=== PATIENT | male | born 1960 | race Two or more races ===

== ENCOUNTER → 2018-01-02 | Outpatient (CLI) | payer BC ==
--- NOTE | 2018-01-02 12:37 | Diagnostic Imaging Report ---
EXAMINATION: MRI of the thoracic spine without contrast HISTORY: Mid back pain for last 3 years, radiculopathy COMPARISON: None. TECHNIQUE: Sagittal T1 without contrast, T2, and STIR; axial T2. Coronal T2. FINDINGS: Curvature: Normal kyphosis. Vertebrae: -Subtle diffuse low T1 bone marrow signal intensity within the T8, T9 and T10 vertebral bodies and partially posterior elements mainly on the left left pedicle of T9 and T10, no definite cortical disruption, periosteal reaction or paraspinal soft tissue abnormality. This finding is nonspecific and may represent an artifact or be related to subacute trauma, bone marrow replacement, myeloproliferative disorder and red marrow reconversion in the setting of anemia, among other etiologies. -No evidence of recent displaced fractures, infection, or expansile tumors. Discs: Normal Spinal canal: No mass or abnormal blood vessels. Spinal cord: Normal size and signal intensity. Foramina: Unremarkable. Paraspinal soft tissues: Unremarkable. Proximal ribs: No abnormal signal intensity. IMPRESSION: Nonspecific subtle diffuse low T1 signal intensity within the T8, T9 and T10 vertebral bodies, comparison to prior studies if available is advised, otherwise a bone scan and laboratory work for myeloproliferative disorder are recommended for further evaluation. Signed by: Dr. Chanell Diaz M.D. on 01/02/2018 12:34 PM
--- NOTE | 2018-01-05 07:18 | Diagnostic Imaging Report ---
EXAMINATION: MRI of the lumbar spine without contrast HISTORY: Low back pain radiating to the lower extremities bilaterally for last 3 years with numbness. Prior lumbar spine surgery COMPARISON: None. TECHNIQUE: Sagittal T1, T2, STIR; axial T2 and proton density. FINDINGS: It is assumed that there are 5 lumbar vertebrae. Curvature/Alignment: Normal lordosis. Vertebrae: No evidence of recent fracture, infection, or neoplasm. Conus: Normal, terminating at L1 Cauda equina: Unremarkable. Lower thoracic: Unremarkable. Paraspinal soft tissues: Unremarkable. Degenerative changes: L1-L2: Minimal asymmetric to left disc bulge without canal or foraminal stenosis. L2-L3: Unremarkable. L3-L4: Left-sided laminotomy defect, mild symmetric disc bulge and bilateral facet arthrosis. Minimal foraminal narrowing. No canal stenosis. No recurrent disc or scar tissue. L4-L5: Status post bilateral laminectomy with canal decompression. Mild symmetric disc bulge, moderate facet arthrosis. Moderate bilateral foraminal stenoses worst on the left. No evidence of recurrent disc herniation or significant scar tissue. L5-S1: Possible left-sided laminotomy defect. Asymmetric to left disc bulge and facet arthrosis. Moderate left foraminal stenoses. IMPRESSION: 1. Moderate degenerative foraminal stenosis bilaterally at L4-L5 and on the left at L5-S1. 2. Postoperative changes at L3-L4 and L4-L5. No recurrent disc herniation or significant scar tissue formation. Signed by: Dr. Chanell Diaz M.D. on 01/05/2018 7:15 AM
== END ==
LOC: MRI 07:20
PROVIDERS: ATTEND Internal Medicine
DX: M54.14 Radiculopathy, thoracic region (principal); M54.16 Radiculopathy, lumbar region
CPT/HCPCS: 72146; 72148